=== PATIENT | male | born 1990 | race Caucasian/White ===

== ENCOUNTER 2017-05-13 22:33 | Emergency (ER) | END 2017-05-14 01:58 | disposition home or self-care (01) ==

== ENCOUNTER 2017-07-21 10:58 | Day surgery (SDC) | END 2017-07-21 16:18 | disposition home or self-care (01) ==

== ENCOUNTER 2017-07-22 04:06 | Emergency (ER) | END 2017-07-22 05:51 | disposition home or self-care (01) ==